=== PATIENT | male | born 1970 | race Caucasian/White ===

== ENCOUNTER 2022-10-13 09:55 | Outpatient (REF) | payer BC, SELFPAY | END 2022-10-13 09:56 | disposition home or self-care (01) | LOC: HO.SH 09:55 | PROVIDERS: Visit Provider Nurse Practitioner Family | DX: Z01.118 Encounter for examination of ears and hearing with other abnormal findings (principal); H93.293 Other abnormal auditory perceptions, bilateral | CPT/HCPCS: 92557; 92700 ==

== ENCOUNTER 2024-09-19 06:56 | Outpatient (RCR) | payer BC, SELFPAY | END 2024-10-01 08:43 | disposition home or self-care (01) | LOC: HO.OT 06:56 | PROVIDERS: PCP Nurse Practitioner Family; Visit Provider Orthopaedic Surgery | DX: M19.031 Primary osteoarthritis, right wrist (principal); Z98.890 Other specified postprocedural states | CPT/HCPCS: 97110; 97140; 97165 ==

== ENCOUNTER → 2024-11-13 09:16 | Outpatient (BNVA) | payer SELFPAY | PROVIDERS: PCP Nurse Practitioner Family; Visit Provider Physician Assistant Medical | DX: Z02.79 Encounter for issue of other medical certificate (principal) ==